=== PATIENT | female | born 1985 | race Caucasian/White ===

== ENCOUNTER 2024-10-11 15:00 | Emergency (ER) | payer MEDICAID ==
[~2024-10-11] VITALS: Ht 154.9 cm; Wt 54.4 kg
[2024-10-11] MEDS ORDERED: LORAZEPAM INJ 2 MG/ML VIAL ONE (16:03)
[2024-10-11] MEDS: LORAZEPAM INJ 2 MG/ML VIAL IV ONE (16:05)
[2024-10-11] MEDS: LEVETIRACETAM (500MG) 1,000 MG in PREMIX 90 EA IV SCH (16:10)
[2024-10-11 16:40] LABS: BASOPHILS % (AUTO) 0.5 % (0.0-2.0); EOSINOPHILS # (AUTO) 0.1 K/uL (0.0-0.7); EOSINOPHILS % (AUTO) 1.8 % (0.0-6.0); HEMATOCRIT 39 % (33-45); HEMOGLOBIN 12.8 g/dL (11.5-14.8); LYMPHOCYTES # (AUTO) 0.5 K/uL (0.8-4.8); LYMPHOCYTES % (AUTO) 10.1 % (20.0-44.0); MEAN CORPUSCULAR HEMOGLOBIN 31 PG (26.0-33.0); MEAN CORPUSCULAR HGB CONC 33 g/dl (31.0-36.0); MEAN CORPUSCULAR VOLUME 95 fL (82-100); MONOCYTES # (AUTO) 0.3 K/uL (0.1-1.30); NEUTROPHILS # (AUTO) 3.6 K/uL (1.8-8.9); NEUTROPHILS % (AUTO) 80.6 % (43.0-81.0); PLATELET COUNT (AUTO) 179 K/uL (150-450); RED BLOOD CELL COUNT(AUTO) 4.13 MIL/uL (4.0-5.2); RED CELL DISTRIBUTION WIDTH 16.8 % (11.5-15.0); WHITE BLOOD COUNT (AUTO) 4.4 K/uL (4.3-11.0)
[2024-10-11 16:48] LABS: CALCIUM, SERUM 9.6 mg/dL (8.5-10.1); CARBON DIOXIDE 33 mmol/L (21-32); CHLORIDE 97 mmol/L (98-107); CREATININE 3.8 mg/dL (0.6-1.3); GLUCOSE 148 mg/dL (74-106); POTASSIUM 3.1 mmol/L (3.5-5.1); SODIUM SERUM 138 mmol/L (136-145); UREA NITROGEN, BLOOD 24 mg/dL (7-18)
[2024-10-11 17:44] LABS: PHENOBARBITAL 1 ug/ml (15-39)
[2024-10-11 17:45] LABS: PHENYTOIN (DILANTIN) < 0.5 ug/ml (10.0-20.0); VALPROIC ACID < 3 ug/mL (50-100)
[2024-10-11 22:55] VITALS: BP 134/81; TEMP 98.5; O2SAT 99
== END 2024-10-11 22:56 ==
LOC: ER 15:10
DX: G40.909 Epilepsy, unspecified, not intractable, without status epilepticus (principal); I12.0 Hypertensive chronic kidney disease with stage 5 chronic kidney disease or end stage renal disease; N18.6 End stage renal disease; Z86.73 Personal history of transient ischemic attack (TIA), and cerebral infarction without residual deficits; Z93.0 Tracheostomy status; Z99.2 Dependence on renal dialysis; Z86.69 Personal history of other diseases of the nervous system and sense organs
CPT/HCPCS: 99285; 96365; 96375; 85025; 80048; 80185; 80184; 36415; 80164; J2060; A4223; J1953; A4216